=== PATIENT | female | born 1965 | race Hispanic/Latino ===

== ENCOUNTER 2018-02-21 13:11 | Inpatient (IN) | payer BC ==
[2018-02-21] MEDS ORDERED: Albuterol-Ipratrop 3 mg / 0.5 (3 ml) UD IH STA (13:49)
[2018-02-21] MEDS ORDERED: Sodium Chloride 0.9% 1,000 ML IV STA (13:49)
[2018-02-21] MEDS ORDERED: Albuterol 0.083% Inhal Sol (2.5 mg/3 mL) UD INH STA (13:49)
--- NOTE | 2018-02-21 13:55 | ED PDOC ---
Arrival/HPI - General Chief Complaint: Shortness Of Breath Time Seen by Provider: 02/21/18 13:47 Historian: Patient - History of Present Illness Narrative History of Present Illness (Text): 02/21/18 14:05 Patient is a 53 year old female who presents to the Emergency department complaining of sore throat, which has worsened to dyspnea over the past 8 days. Patient reports that 8 days ago she started experiencing sore throat and 4 days later her PMD prescribed Levaquin. Her symptoms continued to worsen and is now experiencing dyspnea. Patient states that she has an inhaler, which she has been taking for the past week. Patient admits to being a current smoker and smokes 4-5 cigarettes per day. Patient denies chills, chest pain, cough, abdominal pain, nausea, vomiting, diarrhea, back pain, neck pain, headache, dizziness, or any other complaint. Time/Duration: 1 week Symptom Onset: Gradual Symptom Course: Worsening Context: Home Past Medical History - Provider Review Nursing Documentation Reviewed: Yes - Infectious Disease Hx of Infectious Diseases: None - Cardiac Hx Cardiac Disorders: No - Pulmonary Hx Respiratory Disorders: Yes Hx Chronic Obstructive Pulmonary Disease (COPD): Yes Hx Pneumonia: Yes (06-06-15) - Neurological Hx Neurological Disorder: No - HEENT Hx HEENT Disorder: No - Renal Hx Renal Disorder: No - Endocrine/Metabolic Hx Endocrine Disorders: Yes Hx Hypothyroidism: Yes - Hematological/Oncological Hx Blood Disorders: No - Integumentary Hx Dermatological Disorder: No - Musculoskeletal/Rheumatological Hx Musculoskeletal Disorders: Yes Hx Arthritis: Yes (l leg surgery) - Gastrointestinal Hx Gastrointestinal Disorders: No - Genitourinary/Gynecological Hx Genitourinary Disorders: (C/S X 1,OOPHORECTOMY) - Psychiatric Hx Psychophysiologic Disorder: Yes Hx Anxiety: Yes Hx Substance Use: No - Surgical History Hx Abdominal Aortic Aneurysm Repair: Yes (disease.) Hx Musculoskeletal Surgery: Yes (knee) Other/Comment: oophorectomy - Anesthesia Hx Anesthesia: Yes Hx Anesthesia Reactions: No Family/Social History - Physician Review Nursing Documentation Reviewed: Yes Family/Social History: No Known Family HX Smoking Status: Light Smoker < 10 Cigarettes Daily Hx Alcohol Use: Yes (WINE SOCIALLY) Frequency of alcohol use: Socially Hx Substance Use: No Allergies/Home Meds Allergies/Adverse Reactions: Allergies No Known Allergies Allergy (Verified 06/06/15 20:58) Home Medications: Home Meds Medication Instructions Recorded Confirmed Levothyroxine [Synthroid] 125 mcg PO DAILY 02/21/18 02/21/18 Review of Systems - Physician Review All systems were reviewed & negative as marked: Yes - Review of Systems ENT: Sore Throat Respiratory: SOB Cardiovascular: absent: Chest Pain Gastrointestinal: absent: Abdominal Pain, Diarrhea, Nausea, Vomiting Musculoskeletal: absent: Back Pain, Neck Pain Neurological: absent: Headache, Dizziness Physical Exam Vital Signs Reviewed: Yes Vital Signs Temp Pulse Resp BP Pulse Ox 02/21/18 18:09 79 125/80 16 L 02/21/18 16:12 84 18 127/77 92 L 02/21/18 15:22 86 18 127/86 100 02/21/18 13:20 98.4 F 88 20 130/88 92 L 02/21/18 13:15 18 Temperature: Afebrile Blood Pressure: Normal Pulse: Regular Respiratory Rate: Normal Appearance: Positive for: Well-Appearing Mental Status: Positive for: Alert and Oriented X 3 - Systems Exam Head: Present: Atraumatic, Normocephalic Pupils: Present: PERRL Extroacular Muscles: Present: EOMI Conjunctiva: Present: Normal Mouth: Present: Moist Mucous Membranes Neck: Present: Normal Range of Motion Respiratory/Chest: Present: Good Air Exchange, Wheezes (Musical wheezing throught lungs), Rhonchi (Musical Rhonci throughout lungs). No: Respiratory Distress, Accessory Muscle Use Cardiovascular: Present: Regular Rate and Rhythm, Normal S1, S2. No: Murmurs Abdomen: No: Tenderness, Distention, Peritoneal Signs Back: Present: Normal Inspection Upper Extremity: Present: Normal Inspection. No: Cyanosis, Edema Lower Extremity: Present: Normal Inspection. No: Edema Neurological: Present: GCS=15, CN II-XII Intact, Speech Normal Skin: Present: Warm, Dry, Normal Color. No: Rashes Psychiatric: Present: Alert, Oriented x 3, Normal Insight, Normal Concentration Medical Decision Making ED Course and Treatment: 02/21/18 13:54 Impression: Patient is a 53 year old female who is experiencing worsening sore throat and dyspnea. Differential Diagnosis included but are not limited to: Pulmonary Embolism vs. Bronchitis vs. Pneumonia vs. COPD Plan: --EKG --Chest X-ray --Cardiac enzymes --D-Dimer --labs --Albuterol --Duoneb --Solu-Medrol --Urinalysis --IV fluids -- Reassess and disposition Prior Visits: Notes and results from previous visits were reviewed. Progress Notes: EKG shows NSR at 85 BPM with normal axis and intervals. Interpreted by me. Chest X-ray shows no acute processes. Interpreted by me. 02/21/18 14:27 D-Dimer was positive will order CTA to evaluate patient for pulmonary embolism. 02/21/18 15:18 Patient just told the nurse that she experienced tachycardia as an adverse reaction to a contrast used during a past stress test. As a precaution Pepcid and Benadryl was administered. 02/21/18 15:50 Reevaluation: On reevaluation the patient feels better since starting nebulizer treatment. Pending chemistry and CTA. 02/21/18 18:[address] with contrast(pulmonary angiogram): Creator : Fracisco Silva [employer] Machine Operator : Ayaan Chaves MD IMPRESSION: No definitive evidence of large central pulmonary embolus. Patchy ground-glass opacities seen in the upper lobes bilaterally, including the middle lobe and lingular regions and left lung base. Minor changes seen right lung base. Findings may represent may represent developing multifocal infiltrates. 02/21/18 19:38 Discussed case with who agreed to the patient being admitted under his services. requested consult with and - Lab Interpretations Lab Results: 02/21/18 13:53 02/21/18 16:30 Lab Results 02/21/18 16:30: Sodium 143, Potassium 3.7, Chloride 106, Carbon Dioxide 24, Anion Gap 16, BUN 10, Creatinine 0.6 L, Est GFR ( Amer) > 60, Est GFR ( Non-Af Amer) > 60, Random Glucose 189 H, Calcium 8.9, Total Bilirubin 0.6, AST 28, ALT 24, Alkaline Phosphatase 116, Lactate Dehydrogenase 690, Total Creatine Kinase 58, Troponin I < 0.01, Total Protein 7.3, Albumin 4.2, Globulin 3.0, Albumin/Globulin Ratio 1.4 02/21/18 14:06: Urine Color Yellow, Urine Appearance Clear, Urine pH 6.5, Ur Specific [place] 1.025, Urine Protein Trace H, Urine Glucose (UA) Negative, Urine Ketones Negative, Urine Blood Negative, Urine Nitrate Negative, Urine Bilirubin Negative, Urine Urobilinogen 0.2, Ur Leukocyte Esterase Negative, Urine RBC 0 - 2, Urine WBC 0 - 2, Ur Epithelial Cells 4 - 5, Urine Bacteria Many , Urine Other Uyeast 02/21/18 13:53: PT 11.8, INR 1.03, D-Dimer, Quantitative 529 H 02/21/18 13:53: WBC 9.9 D, RBC 4.29, Hgb 14.9, Hct 43.2, MCV 100.7, MCH 34.7, MCHC 34.5, RDW 14.2, Plt Count 255, MPV 10.2, Gran % 79.8 H, Lymph % (Auto) 14.6 L, [place] % (Auto) 5.2, Eos % (Auto) 0.3 L, Baso % (Auto) 0.1, Gran # 7.93 H , Lymph # (Auto) 1.5, [place] # (Auto) 0.5, Eos # (Auto) 0.0, Baso # (Auto) 0.01 I have reviewed the lab results: Yes - RAD Interpretation Radiology Orders: 02/21/18 13:49 CHEST PORTABLE [RAD] Stat 02/21/18 14:35 ANGIO CHEST PE PROTOCOL [CT] Stat Tobacco Sample Puller: ED Physician, Radiologist - EKG Interpretation Interpreted by ED Physician: Yes Type: 12 lead EKG - Medication Orders Current Medication Orders: Discontinued Medications Albuterol Sulfate (Albuterol 0.083% Inhal Janine (2.5 Mg/3 Ml) Ud) 5 mg INH STAT STA Stop: 02/21/18 13:50 Last Admin: 02/21/18 14:10 Dose: 5 mg Albuterol/Ipratropium (Duoneb 3 Mg/0.5 Mg (3 Ml) Ud) 3 ml IH STAT STA Stop: 02/21/18 13:50 Last Admin: 02/21/18 14:09 Dose: 3 ml Diphenhydramine HCl (Benadryl) 50 mg IVP STAT STA Stop: 02/21/18 15:16 Last Admin: 02/21/18 15:21 Dose: 50 mg IVP Administration Document 02/21/18 15:21 SF (Rec: 02/21/18 15:21 [email or web address] Charges for Administration # of IVP Administrations 1 Famotidine (Pepcid) 40 mg IVP STAT STA Stop: 02/21/18 15:16 Last Admin: 02/21/18 15:21 Dose: 40 mg IVP Administration Document 02/21/18 15:21 SF (Rec: 02/21/18 15:21 [email or web address] Charges for Administration # of IVP Administrations 1 Sodium Chloride (Sodium Chloride 0.9%) 1,000 mls @ 999 mls/hr IV .Q1H1M STA Stop: 02/21/18 14:49 Last Admin: 02/21/18 13:55 Dose: 999 mls/hr eMAR Start Stop Document 02/21/18 13:55 SF (Rec: 02/21/18 14:15 [email or web address]) Intravenous Solution Start Date 02/21/18 Start Time 13:55 End Date 02/21/18 End time 14:56 Total Infusion Time 61 Magnesium 2 gm/50 ml NS (Magnesium Sulfate 2 Gm/50 Ml Ns) 2 gm in 50 mls @ 50 mls/hr IVPB ONCE ONE Stop: 02/21/18 15:03 Last Admin: 02/21/18 14:36 Dose: 50 mls/hr eMAR Start Stop Document 02/21/18 14:36 SF (Rec: 02/21/18 14:36 [email or web address] Intravenous Solution Start Date 02/21/18 Start Time 14:36 End Date 02/21/18 End time 15:36 Total Infusion Time 60 Vancomycin HCl (Vancomycin 1gm) 1 gm in 250 mls @ 167 mls/hr IVPB STAT STA PRN Reason: Protocol Stop: 02/21/18 20:27 Last Admin: 02/21/18 20:59 Dose: 167 mls/hr eMAR Start Stop Document 02/21/18 20:59 SF (Rec: 02/21/18 21:00 [email or web address]) Intravenous Solution Start Date 02/21/18 Start Time 21:00 End Date 02/21/18 End time 22:30 Total Infusion Time 90 Piperacillin Sod/Tazobactam Sod (Zosyn 3.375 In Ns 100ml) 100 mls @ 200 mls/hr IVPB STAT STA PRN Reason: Protocol Stop: 02/21/18 19:27 Last Admin: 02/21/18 19:42 Dose: 200 mls/hr eMAR Start Stop Document 02/21/18 19:42 SF (Rec: 02/21/18 19:43 [email or web address] Intravenous Solution Start Date 02/21/18 Start Time 19:42 End Date 02/21/18 End time 20:15 Total Infusion Time 33 Lorazepam (Ativan) 1 mg IVP ONCE ONE PRN Reason: Protocol Stop: 02/21/18 14:05 Last Admin: 02/21/18 14:36 Dose: 1 mg IVP Administration Document 02/21/18 14:36 SF (Rec: 02/21/18 14:36 [email or web address] Charges for Administration # of IVP Administrations 1 Lorazepam (Ativan) 2 mg IVP ONCE ONE PRN Reason: Protocol Stop: 02/21/18 15:16 Last Admin: 02/21/18 15:21 Dose: 2 mg IVP Administration Document 02/21/18 15:21 SF (Rec: 02/21/18 15:21 SF [email or web address] Charges for Administration # of IVP Administrations 1 Methylprednisolone (Solu-Medrol) 125 mg IVP STAT STA Stop: 02/21/18 13:53 Last Admin: 02/21/18 14:10 Dose: 125 mg IVP Administration Document 02/21/18 14:10 SF (Rec: 02/21/18 14:10 SF [email or web address] Charges for Administration # of IVP Administrations 1 - Scribe Statement The provider has reviewed the documentation as recorded by the Elizabethibrosa Joyner Provider Scribe Attestation: All medical record entries made by the Scribe were at my direction and personally dictated by me. I have reviewed the chart and agree that the record accurately reflects my personal performance of the history, physical exam, medical decision making, and the department course for this patient. I have also personally directed, reviewed, and agree with the discharge instructions and disposition. Disposition/Present on Arrival - Present on Arrival Any Indicators Present on Arrival: No History of DVT/PE: No History of Uncontrolled Diabetes: No Urinary Catheter: No History of Decub. Ulcer: No History Surgical Site Infection Following: None - Disposition Have Diagnosis and Disposition been Completed?: Yes Diagnosis: Pneumonia Disposition: HOSPITALIZED Disposition Time: 19:10 Patient Plan: Admission Patient Problems: Current Active Problems Problem Status Onset Pneumonia Acute Condition: FAIR
[2018-02-21 14:02] LABS: BASO # 0.01 K/mm3 (0.0-2.0); BASO % 0.1 % (0.0-3.0); EOS % 0.3 % (1.5-5.0); GRAN # 7.93 (1.4-6.5); GRAN % 79.8 % (50.0-68.0); HEMOGLOBIN 14.9 g/dL (12.0-16.0); LYMPH # 1.5 (1.2-3.4); LYMPH % 14.6 % (22.0-35.0); MEAN CELL VOLUME 100.7 fl (80.0-105.0); MEAN CORPUSCULAR HEMOGLOBIN 34.7 pg (25.0-35.0); MEAN CORPUSCULAR HGB CONC 34.5 g/dl (31.0-37.0); MEAN PLATELET VOLUME 10.2 fl (7.0-11.0); MONO # 0.5 (0.1-0.6); MONO % 5.2 % (1.0-6.0); RBC 4.29 10^6/uL (3.5-6.1); RED CELL DISTRIBUTION WIDTH 14.2 % (11.5-14.5); WHITE BLOOD COUNT 9.9 10^3/ul (4.5-11.0)
[2018-02-21] MEDS ORDERED: Magnesium 2 gm/50 ml NS 2 GM/50 ML BAG IVPB ONE (14:04)
[2018-02-21 14:11] LABS: PH,URINE 6.5 (4.7-8.0); URINE BILIRUBIN NEGATIVE (NEGATIVE); URINE BLOOD NEGATIVE (NEGATIVE); URINE GLUCOSE (UA) NEGATIVE (NEGATIVE); URINE LEUKOCYTE ESTERASE NEGATIVE Leu/uL (NEGATIVE); URINE PROTEIN TRACE mg/dL (<30 mg/dL); URINE UROBILINOGEN 0.2 E.U./dL (<1 E.U./dL)
--- NOTE | 2018-02-21 14:11 | RAD ---
HISTORY: Cough, Cold and Congestion, despite steroids COMPARISON: 06/29/2015 FINDINGS: LUNGS: There is peribronchial thickening. No evidence of pneumonia PLEURA: No significant pleural effusion identified, no pneumothorax apparent. CARDIOVASCULAR: Normal. OSSEOUS STRUCTURES: No significant abnormalities. VISUALIZED UPPER ABDOMEN: Normal. OTHER FINDINGS: None. IMPRESSION: Peribronchial thickening with no evidence of pneumonia
[2018-02-21 14:16] LABS: INR 1.03 (0.93-1.08); PROTHROMBIN TIME 11.8 SECONDS (9.4-12.5)
[2018-02-21 14:19] LABS: URINE APPEARANCE CLEAR (CLEAR); URINE COLOR YELLOW (YELLOW)
[2018-02-21 14:28] LABS: URINE BACTERIA MANY (NEG); URINE RBC 0 - 2 /hpf (0-2); URINE WBC 0 - 2 /hpf (0-6)
[2018-02-21] MEDS ORDERED: DiphenhydrAMINE 50 mg/ml Inj IVP STA (15:15)
[2018-02-21 17:06] LABS: ALB/GLOB RATIO 1.4 (1.1-1.8); ALBUMIN 4.2 g/dL (3.0-4.8); ALT/SGPT 24 U/L (7-56); AST/SGOT 28 U/L (14-36); BLOOD UREA NITROGEN 10 mg/dL (7-21); CALCIUM 8.9 mg/dL (8.4-10.5); GFR AFRICAN-AMERICAN > 60; GFR NON-AFRICAN AMERICAN > 60
[2018-02-21 17:12] LABS: TROPONIN I < 0.01 ng/mL
[2018-02-21] MEDS ORDERED: Iohexol 300 100 ML IJ ONE (17:13)
--- NOTE | 2018-02-21 18:14 | CT ---
PROCEDURE: CT Chest with contrast (Pulmonary Angiogram) HISTORY: Elevated D-Dimer, Possible PE COMPARISON: Comparison made with CT scan chest dated 08/10/2015. TECHNIQUE: Axial computed tomography images were obtained of the chest in the pulmonary arterial phase of enhancement. Coronal and sagittal reformatted images were created and reviewed. Intravenous contrast dose: 100 cc Omnipaque 350 Radiation dose: Total exam DLP = 337.92 mGy-cm. This CT exam was performed using one or more of the following dose reduction techniques: Automated exposure control, adjustment of the mA and/or kV according to patient size, and/or use of iterative reconstruction technique. FINDINGS: PULMONARY ARTERIES: The visualized portions of the pulmonary trunk, right and left main, the lobar, segmental and proximal subsegmental branches of the pulmonary arteries appear relatively well opacified with no definitive large central filling defects seen to suggest pulmonary embolus. Pulmonary trunk measures approximately 2.7 cm. AORTA: No acute findings. No thoracic aortic aneurysm. Ascending thoracic aorta measures approximately 3.2 cm and descending thoracic aorta measures approximately 2.5 cm. No evidence of aortic dissection LUNGS: There are patchy ground-glass opacities seen in the upper lobes bilaterally, including the middle lobe and lingular regions and left lung base. Minor changes seen right lung base. Findings may represent may represent developing multifocal infiltrates. PLEURAL SPACES: Unremarkable. No effusion or pneumothorax. HEART: Heart size is mildly enlarged. No significant pericardial effusion. LYMPH NODES: Multiple of mediastinal lymph nodes are present the largest in the right precarinal mid region measuring nearly 14 mm. Small bilateral hilar lymph nodes are present as well. Central airways midline and patent. No large central endoluminal lesions. BONES, CHEST WALL: Mild multilevel degenerative spondylosis of the thoracic spine. No acute compression fractures no retropulsed fragments. OTHER FINDINGS: Unremarkable. IMPRESSION: No definitive evidence of large central pulmonary embolus. . Patchy ground-glass opacities seen in the upper lobes bilaterally, including the middle lobe and lingular regions and left lung base. Minor changes seen right lung base. Findings may represent may represent developing multifocal infiltrates. See above discussion for additional details and findings.
[2018-02-21] MEDS ORDERED: Vancomycin 1gm in NS 250ml 1 GM/250 ML BAG IVPB STA (18:58)
[2018-02-21] MEDS ORDERED: Piperacillin/Tazobact 3.375 gm 100 ML IVPB STA (18:58)
[2018-02-22] MEDS: Albuterol-Ipratrop 3 mg / 0.5 (3 ml) UD IH SCH ×3 (00:24→07:49)
[2018-02-22 00:28] VITALS: BMI 29.1
[2018-02-22 07:08] LABS: HEMOGLOBIN 13.7 g/dL (12.0-16.0); MEAN CELL VOLUME 100.5 fl (80.0-105.0); MEAN CORPUSCULAR HEMOGLOBIN 35.3 pg (25.0-35.0); MEAN CORPUSCULAR HGB CONC 35.1 g/dl (31.0-37.0); MEAN PLATELET VOLUME 10.3 fl (7.0-11.0); RBC 3.88 10^6/uL (3.5-6.1); RED CELL DISTRIBUTION WIDTH 14.1 % (11.5-14.5); WHITE BLOOD COUNT 11.5 10^3/ul (4.5-11.0)
[2018-02-22 07:51] LABS: T4 5.7 ug/dL (5.5-11.0)
[2018-02-22 08:04] LABS: T3 0.48 ng/mL (0.97-1.69)
[2018-02-22 08:19] LABS: ALB/GLOB RATIO 1.2 (1.1-1.8); ALBUMIN 3.7 g/dL (3.0-4.8); ALT/SGPT 27 U/L (7-56); AST/SGOT 23 U/L (14-36); BLOOD UREA NITROGEN 9 mg/dL (7-21); CALCIUM 8.9 mg/dL (8.4-10.5); GFR AFRICAN-AMERICAN > 60; GFR NON-AFRICAN AMERICAN > 60
--- NOTE | 2018-02-22 09:44 | CARD ---
APPROVED REPORT EKG Measurement Heart [id number] DC [id number] [id number] <Conclusion> Normal sinus rhythm Nonspecific ST abnormality No change
[2018-02-22] MEDS ORDERED: Azithromycin 500MG/NS 250ml 500 MG/250 ML BAG IVPB ONE (10:30)
[2018-02-22] MEDS: Cefepime 1gm in NS 100ml 1 GM/100 ML BAG IVPB SCH ×2 (13:02→21:42)
[2018-02-22] MEDS: Levalbuterol 0.63 MG/3 ML Inhal Soln UD IH SCH ×2 (13:33→22:00)
[2018-02-22] MEDS: Vancomycin 1gm in NS 250ml 1 GM/250 ML BAG IVPB SCH ×2 (14:05→22:56)
--- NOTE | 2018-02-22 14:34 | CP.PCM.CON ---
History of Present Illness - History of Present Illness History of Present Illness: 53 year old female with PMH of COPD, history of pneumonia, hypothyroidism, anxiety, S/P oophorectomy, S/P knee surgery came in to [facility] [place] because of continued cough and SOB which started a week ago. She was using her inhaler which was not helping. She saw her PMD and she was given Levaquin which she took for 4 days with minimal relief. She denies sore throat, no rhinorrhea, no chest pain, no headache or dizziness, no fever or chills, no nausea or vomiting, no abdominal pain, no diarrhea, no dysuria. CT chest showed multifocal infiltrates. Infectious diseases consult is requested to further evaluate and manage. Review of Systems - Review of Systems All systems: reviewed and no additional remarkable complaints except (as per HPI ) Past Patient History - Infectious Disease Hx of Infectious Diseases: None - Past Medical History & Family History Past Medical History?: No - Past Social History Smoking Status: Light Smoker < 10 Cigarettes Daily - CARDIAC Hx Hypertension: Yes - PULMONARY Hx Asthma: Yes Hx Chronic Obstructive Pulmonary Disease (COPD): Yes Hx Pneumonia: Yes - NEUROLOGICAL Hx Neurological Disorder: No - HEENT Hx Cataracts: Yes (B/L eyes) - RENAL Hx Chronic Kidney Disease: No - ENDOCRINE/METABOLIC Hx Hypothyroidism: Yes - HEMATOLOGICAL/ONCOLOGICAL Hx Blood Disorders: No - INTEGUMENTARY Hx Dermatological Problems: No - MUSCULOSKELETAL/RHEUMATOLOGICAL Hx Falls: No Hx Unsteady Gait: Yes (Knee replacement) - GASTROINTESTINAL Hx Gastrointestinal Disorders: No - GENITOURINARY/GYNECOLOGICAL Other/Comment: L ovary removed - PSYCHIATRIC Hx Anxiety: Yes Hx Depression: Yes Hx Substance Use: No - SURGICAL HISTORY Hx Hysterectomy: Yes (Partial) Hx Joint Replacement: Yes (Knee Replacement) - ANESTHESIA Hx Anesthesia: Yes Hx Anesthesia Reactions: No Meds Allergies/Adverse Reactions: Allergies Allergy/AdvReac Type Severity Reaction Status Date / Time No Known Allergies Allergy Verified 06/06/15 20:58 - Medications Medications: Current Medications Alprazolam (Xanax) 0.5 mg PO TID PRN; Protocol PRN Reason: Anxiety Last Admin: 02/22/18 09:54 Dose: 0.5 mg Azithromycin (Zithromax 500mg In Ns) 500 mg in 250 mls @ 167 mls/hr IVPB DAILY DESTINI Azithromycin (Zithromax 500mg In Ns) 500 mg in 250 mls @ 167 mls/hr IVPB .EXTRA DOSE ONE Stop: 02/22/18 11:59 Levalbuterol HCl (Xopenex) 0.63 mg IH TIDRESP DESTINI Lorazepam (Ativan) 0.5 mg IVP Q6H PRN; Protocol PRN Reason: Agitation Last Admin: 02/22/18 05:00 Dose: 0.5 mg Methylprednisolone (Solu-Medrol) 80 mg IVP Q8 DESTINI Last Admin: 02/22/18 06:46 Dose: 80 mg Physical Exam - Constitutional Appears: Non-toxic - Head Exam Head Exam: NORMAL INSPECTION - ENT Exam ENT Exam: Mucous Membranes Moist - Neck Exam Neck exam: Negative for: Lymphadenopathy, Meningismus - Respiratory Exam Respiratory Exam: Decreased Breath Sounds - Cardiovascular Exam Cardiovascular Exam: +S1, +S2 - GI/Abdominal Exam GI & Abdominal Exam: Soft. absent: Tenderness Results - Vital Signs Recent Vital Signs: Last Vital Signs Temp 98.4 F 02/22/18 06:00 Pulse 80 02/22/18 06:00 Resp 21 02/22/18 06:00 BP 120/76 02/22/18 06:00 Pulse Ox 93 L 02/22/18 06:00 - Labs Result Diagrams: 02/22/18 06:30 02/22/18 06:30 Labs: Laboratory Results - last 24 hr 02/22/18 02/22/18 02/22/18 06:30 06:30 06:30 WBC 11.5 H RBC 3.88 Hgb 13.7 Hct 39.0 MCV 100.5 MCH 35.3 H MCHC 35.1 RDW 14.1 Plt Count 254 MPV 10.3 Sodium 140 Potassium 3.6 Chloride 105 Carbon Dioxide 24 Anion Gap 15 BUN 9 Creatinine 0.6 L Est GFR ( Amer) > 60 Est GFR (Non-Af Amer) > 60 Random Glucose 157 H Calcium 8.9 Total Bilirubin 0.3 AST 23 ALT 27 Alkaline Phosphatase 103 Total Protein 6.9 Albumin 3.7 Globulin 3.1 Albumin/Globulin Ratio 1.2 Thyroxine (T4) 5.7 Total T3 0.48 L TSH 3rd Generation 0.82 Assessment & Plan - Assessment and Plan (Free Text) Plan: Assessment Sepsis due to multifocal HCAP (since she was exposed to antibiotics in the past week) COPD history of pneumonia hypothyroidism anxiety S/P oophorectomy S/P knee surgery Plan Started Vancomycin, Cefepime and Zithromax pending blood cx, urine Legionella Ag , sputum cx, PCT will monitor clinical response
[2018-02-22] MEDS: Naproxen 550 mg Tab PO PRN (16:17)
[2018-02-22] MEDS: guaiFENesin-Codeine 100-10mg/5ml Syrup (5 ml) UD PO PRN (16:17)
[2018-02-22] MEDS ORDERED: Levothyroxine 125 MCG TAB PO STA (16:23)
--- NOTE | 2018-02-22 19:36 | PN ---
DATE: 02/22/2018 LOCATION: The patient is in room 270, bed 2. SUBJECTIVE: She states she feels better this morning. There have been no acute events overnight. PHYSICAL EXAMINATION: VITAL SIGNS: Temperature of 98.9, pulse rate of 81, blood pressure 129/89, respiratory rate of 20 with a 93% O2 saturation on a nasal cannula. HEENT: Negative. NECK: Supple with full range of motion. No bruits or adenopathy appreciated. LUNGS: Minimal scattered wheeze. HEART: Regular rate and rhythm. No murmurs. ABDOMEN: Benign. NEUROLOGIC: There are no focal deficits. LABORATORY DATA: WBC of 11.5. Chemistries within normal limits with the exception of a random glucose of 157. CT of the chest, no definitive evidence of embolus, no pneumonias identified. IMPRESSION: At this time, acute exacerbation of chronic obstructive pulmonary disease. PLAN: Continue current regimen. Jovanny Thayer MD
[2018-02-23] MEDS: Levothyroxine 125 MCG TAB PO SCH (05:33)
[2018-02-23] MEDS: guaiFENesin-Codeine 100-10mg/5ml Syrup (5 ml) UD PO PRN ×2 (05:33→17:03)
[2018-02-23] MEDS: Cefepime 1gm in NS 100ml 1 GM/100 ML BAG IVPB SCH ×3 (05:33→22:24)
[2018-02-23 07:49] LABS: HEMOGLOBIN 13.2 g/dL (12.0-16.0); MEAN CELL VOLUME 102.1 fl (80.0-105.0); MEAN CORPUSCULAR HEMOGLOBIN 34.2 pg (25.0-35.0); MEAN CORPUSCULAR HGB CONC 33.5 g/dl (31.0-37.0); MEAN PLATELET VOLUME 10.5 fl (7.0-11.0); RBC 3.86 10^6/uL (3.5-6.1); RED CELL DISTRIBUTION WIDTH 14.2 % (11.5-14.5); WHITE BLOOD COUNT 15.5 10^3/ul (4.5-11.0)
[2018-02-23] MEDS: Levalbuterol 0.63 MG/3 ML Inhal Soln UD IH SCH ×3 (07:54→19:02)
[2018-02-23 08:09] LABS: ALB/GLOB RATIO 1.2 (1.1-1.8); ALBUMIN 3.6 g/dL (3.0-4.8); ALT/SGPT 32 U/L (7-56); AST/SGOT 25 U/L (14-36); BLOOD UREA NITROGEN 11 mg/dL (7-21); GFR AFRICAN-AMERICAN > 60; GFR NON-AFRICAN AMERICAN > 60
--- NOTE | 2018-02-23 09:28 | PN ---
DATE: 02/23/2018 PULMONARY PROGRESS NOTE SUBJECTIVE: The patient was seen and examined at the bedside. She still complains of tightness in the chest and shortness of breath. She is coughing productively. PHYSICAL EXAMINATION: VITAL SIGNS: Her temperature is 97.8, pulse 63, respirations 20, pulse oximetry is 93 on nasal cannula, blood pressure 120/60. HEENT: Examination of head, ears, nose and throat is within normal limits. NECK: Supple with no jugular vein distentions. CARDIOVASCULAR: S1, S2. No S3. Regular. LUNGS: Few crackles bilaterally. Expiratory wheezes and rhonchi bilaterally. GASTROINTESTINAL: Soft, nontender. No organomegaly. EXTREMITIES: No pedal edema. No cyanosis. SKIN: No acute skin rash. NEUROLOGIC: No focal deficits. ASSESSMENT: 1. Multilobar pneumonia. 2. Exacerbation of chronic obstructive pulmonary disease. 3. Bronchospasm. PLAN: I have reviewed CT scan of the chest yesterday and determined there are infiltrates in right upper lobe, right lower lobe as well as lingula, so this reveals a pattern of multifocal pneumonia. Today's blood work was reviewed by me. WBCs are 15.5, a hemoglobin of 13.2. I added Zithromax for atypical coverage since radiologically it is more likely to be atypical of viral pneumonia than bacterial pneumonia. With this addition, the patient's condition is improving. We will continue with triple antibiotic therapy, steroids and inhalation treatments. Bryan Meyers MD
[2018-02-23] MEDS: Azithromycin 500MG/NS 250ml 500 MG/250 ML BAG IVPB SCH (09:32)
[2018-02-23] MEDS: Naproxen 550 mg Tab PO PRN ×2 (09:51→17:03)
[2018-02-23] MEDS: Vancomycin 1gm in NS 250ml 1 GM/250 ML BAG IVPB SCH ×2 (11:51→22:25)
--- NOTE | 2018-02-23 12:54 | CP.PCM.PN ---
Subjective - Date & Time of Evaluation Date of Evaluation: 02/23/18 Time of Evaluation: 10:10 - Subjective Subjective: Still with cough and some chest tightness but feeling a little better. Objective - Vital Signs/Intake and Output Vital Signs (last 24 hours): Temp Pulse Resp BP Pulse Ox 97.8 F 69 20 126/83 93 L 02/23/18 06:00 02/23/18 06:00 02/23/18 06:00 02/23/18 06:00 02/23/18 06:00 Intake and Output: 02/23/18 02/23/18 06:59 18:59 Intake Total 1410 Balance 1410 - Medications Medications: Current Medications Alprazolam (Xanax) 0.5 mg PO TID PRN; Protocol PRN Reason: Anxiety Last Admin: 02/22/18 22:57 Dose: 0.5 mg Guaifenesin/Codeine Phosphate (Robitussin W/Codeine) 5 ml PO Q4H PRN PRN Reason: Cough and congestion Last Admin: 02/23/18 05:33 Dose: 5 ml Azithromycin (Zithromax 500mg In Ns) 500 mg in 250 mls @ 167 mls/hr IVPB DAILY DESTINI Cefepime HCl (Maxipime 1gm) 1 gm in 100 mls @ 100 mls/hr IVPB Q8 DESTINI PRN Reason: Protocol Last Admin: 02/23/18 05:33 Dose: 100 mls/hr Vancomycin HCl (Vancomycin 1gm) 1 gm in 250 mls @ 167 mls/hr IVPB Q12H DESTINI PRN Reason: Protocol Last Admin: 02/22/18 22:56 Dose: 167 mls/hr Levalbuterol HCl (Xopenex) 0.63 mg IH TIDRESP [facility] Last Admin: 02/23/18 07:54 Dose: 0.63 mg Levothyroxine Sodium (Synthroid) 125 mcg PO 0600 DESTINI Last Admin: 02/23/18 05:33 Dose: 125 mcg Lorazepam (Ativan) 0.5 mg IVP Q6H PRN; Protocol PRN Reason: Agitation Last Admin: 02/22/18 05:00 Dose: 0.5 mg Methylprednisolone (Solu-Medrol) 80 mg IVP Q8 DESTINI Last Admin: 02/23/18 05:33 Dose: 80 mg Naproxen (Anaprox Ds) 550 mg PO BID PRN PRN Reason: Pain, moderate (4-7) Last Admin: 02/22/18 16:17 Dose: 550 mg - Labs Labs: 02/23/18 06:30 02/23/18 06:30 PT 11.8 SECONDS (9.4-12.5) 02/21/18 13:53 INR 1.03 (0.93-1.08) 02/21/18 13:53 - Constitutional Appears: Chronically Ill - Head Exam Head Exam: NORMAL INSPECTION - Respiratory Exam Respiratory Exam: Decreased Breath Sounds - Cardiovascular Exam Cardiovascular Exam: +S1, +S2 - GI/Abdominal Exam GI & Abdominal Exam: Soft. absent: Tenderness Assessment and Plan - Assessment and Plan (Free Text) Plan: Assessment Sepsis due to multifocal HCAP (since she was exposed to antibiotics in the past week) COPD history of pneumonia hypothyroidism anxiety S/P oophorectomy S/P knee surgery Plan continue Vancomycin, Cefepime and Zithromax day 2 pending blood cx, urine Legionella Ag, sputum cx; PCT is low will continue to monitor clinical response
[2018-02-24] MEDS: Cefepime 1gm in NS 100ml 1 GM/100 ML BAG IVPB SCH ×3 (05:22→22:03)
[2018-02-24] MEDS: Levothyroxine 125 MCG TAB PO SCH (05:23)
[2018-02-24] MEDS: Naproxen 550 mg Tab PO PRN ×2 (05:37→15:49)
[2018-02-24] MEDS ORDERED: Albuterol-Ipratrop 3 mg / 0.5 (3 ml) UD IH PRN (06:54)
[2018-02-24] MEDS: MethylPREDNISolone 40 mg Vial IVP SCH ×2 (07:07→14:25)
--- NOTE | 2018-02-24 07:27 | PN ---
DATE: 02/24/2018 PULMONARY NOTE SUBJECTIVE: The patient appears comfortable this morning. She is not short of breath at rest. OBJECTIVE: VITAL SIGNS: Temperature is 97.7, pulse 53, respirations 19, blood pressure 140/66. Oxygen saturation on nasal cannula is 94-99%. HEENT: Normocephalic, atraumatic. No JVD. CARDIOVASCULAR: Positive S1, S2. No S3 gallop. LUNGS: Decreased breath sounds at the bases. Minimal bilateral rhonchi and wheezing are present. EXTREMITIES: No clubbing, cyanosis or edema. Calves are nontender to palpation. GI: Abdomen is soft, nontender and nondistended. Bowel sounds are positive. SKIN: No acute rash. NEUROLOGIC: Exam limited at the present time. IMPRESSION: 1. Multilobar pneumonia. 2. Acute bronchitis. 3. Acute bronchospasm. 4. Chronic obstructive pulmonary disease. PLAN: The patient appears comfortable this morning. She is not short of breath at rest. She does state to feeling much better overall. On physical exam, there is only mild bronchospasm present. In addition, there is no significant alveolar-arterial gradient. I will decrease the intravenous steroids this morning. I will also change to DuoNeb treatments and add inhaled Pulmicort this morning. I would continue with the current antibiotic therapy - as per Infectious Disease. Input by Dr. Mercado is noted. The temperatures have now fully resolved. There is a leukocytosis - probably due to the steroids. Clinical status of the patient is certainly improved - compared to the initial presentation. I will discuss the above with Dr. Thayer later this morning. Yosef Ryan MD [facility]
--- NOTE | 2018-02-24 07:55 | HP ---
HISTORY OF PRESENT ILLNESS: The patient is a 53-year-old female on room 270, bed 2. The patient presented to the office today complaining of increasing shortness of breath. She was seen 4 days ago in the office and placed on Levaquin, steroids as well as a cough medication and she has been complaining of worsening of dyspnea for the past 8 days. Through the time, she states that the symptoms of shortness of breath and chest tightness and wheezing continued to worsen. PAST MEDICAL HISTORY: Is remarkable for COPD and pneumonia of 06/06/2015. FAMILY HISTORY: Unremarkable. ALLERGIES: NO KNOWN ALLERGIES. SOCIAL HISTORY: This patient smokes approximately 10 cigarettes per day and drinks alcohol socially. PHYSICAL EXAMINATION: VITAL SIGNS: Temperature of 98.4, pulse rate of 86, blood pressure 127/86, respiration rate of 18, oxygen saturation of 92% on room air. HEENT: PERRLA. There is no icterus. Extraocular muscles are intact. NECK: Supple with a full range of motion. There are no bruits or adenopathy present. LUNGS: Shows scattered wheezes and rhonchi throughout both lung sweeney. HEART: Regular rate and rhythm. No murmurs, rubs, or gallops. ABDOMEN: Benign. EXTREMITIES: Show no deformities and no edema. NEUROLOGIC: There are no focal motor deficits. LABORATORY DATA: White blood count is 9.9 with 79% granulocytes. Chemistry is entirely within normal limits with the exception of a non-fasting glucose of 189. Chest x-ray shows peribronchial thickening with no evidence of pneumonia. IMPRESSION AND PLAN: At the time of admission is acute exacerbation of chronic obstructive pulmonary disease. The patient will be placed on bronchodilators, intravenous antibiotics, and respiratory treatments. Consults have been placed for Dr. Ryan as well as Dr. Miller. Jovanny Thayer MD
[2018-02-24 08:06] LABS: HEMOGLOBIN 13.1 g/dL (12.0-16.0); MEAN CELL VOLUME 102.4 fl (80.0-105.0); MEAN CORPUSCULAR HEMOGLOBIN 34.4 pg (25.0-35.0); MEAN CORPUSCULAR HGB CONC 33.6 g/dl (31.0-37.0); MEAN PLATELET VOLUME 10.2 fl (7.0-11.0); RBC 3.81 10^6/uL (3.5-6.1); RED CELL DISTRIBUTION WIDTH 14.3 % (11.5-14.5); WHITE BLOOD COUNT 15.2 10^3/ul (4.5-11.0)
--- NOTE | 2018-02-24 08:18 | CON ---
DATE: 02/22/2018 PULMONARY PROGRESS NOTE REQUESTING PHYSICIAN: Wojciech Thayer MD Rupal Mackey was admitted via emergency room with chief complaint of shortness of breath, wheezing and sore throat. HISTORY OF PRESENT ILLNESS: Patient started complaining of sore throat and cough approximately 1 week prior to her admission. She had fever, developed yellow productive sputum. She also noted wheezing and increased shortness of breath. Patient had a long history of smoking, smokes at least 1 pack per day. There is no history of bronchial asthma. I have personally reviewed her chest x-ray and CT scan. Chest x-ray initially reported only as increased bronchovascular marking; however, both chest x-ray and CT scan reveals multilobar pneumonia with mostly interstitial infiltrates, atypical pneumonia is suspected; however, patient should be covered for both bacterial and atypical pathogens. FAMILY HISTORY: Negative for inherited diseases. SOCIAL HISTORY: She is a lifelong smoker, smokes at least 1 pack per day. MEDICATIONS AT HOME: Reviewed per NOV. The only medication at home is levothyroxine. ALLERGIES: NO KNOWN ALLERGIES. REVIEW OF SYSTEMS: Conducted by reviewing all sources. PULMONARY: See history of present illness. ENDOCRINE: History of hypothyroidism. MUSCULOSKELETAL: History of arthritis and leg surgery. CARDIOVASCULAR: No recent chest pain or palpitations. GASTROINTESTINAL: No nausea, vomiting or diarrhea. The rest of systems were reviewed and found to be negative. HABITS: Currently she is a light smoker, 10 cigarettes a day. She drinks alcohol socially only, never used illicit drugs. PHYSICAL EXAMINATION: GENERAL: She is awake, alert in some respiratory difficulty. HEAD, EAR, NOSE AND THROAT: Within normal limits. NECK: Supple. There is no jugular vein distention. CARDIOVASCULAR: Symmetrical. S1, S2. No S3, regular. PULMONARY: There is bilateral course rhonchi and bilateral expiratory wheezes. GI: Soft, nontender. No organomegaly. EXTREMITIES: No pedal edema. No cyanosis. SKIN: Clear with no skin rashes. No cyanosis. NEUROLOGIC: No focal deficits. LABORATORY DATA: I reviewed additional data. Her D-dimer was elevated. Therefore, she got CTA. I described already the findings on the CT scan of chest on angiographic part. There was no evidence of pulmonary emboli. Her blood chemistries were within normal limits. WBC is normal at 9.9, hemoglobin of 14.9. ASSESSMENT: 1. Bilateral pneumonia, multifocal. 2. Chronic obstructive pulmonary disease. 3. Significant bronchospasm. 4. Hypoxia. 5. Hypothyroidism. PLAN: Patient is complaining of shaky feeling after inhalation treatment. I will replace her DuoNeb inhalations with levalbuterol low dose, which should help with tremors. She is also receiving Ativan for this tremulous feeling. She was started on Zosyn, on vancomycin per emergency room. She also received dose of Benadryl, Pepcid to protect GI tract and received steroids in pretty high dose. Her current antibiotics include vancomycin and Zosyn. This is not good coverage for atypicals and I will add doxycycline. The other alternative would be azithromycin. Patient's condition is guarded, but not critical. Bryan Meyers MD
[2018-02-24] MEDS: Budesonide 0.5 mg/2 ml Inhal Susp UD IH SCH ×2 (08:19→20:30)
[2018-02-24] MEDS: Albuterol-Ipratrop 3 mg / 0.5 (3 ml) UD IH SCH ×3 (08:19→20:30)
[2018-02-24 09:02] LABS: ALB/GLOB RATIO 1.1 (1.1-1.8); ALBUMIN 3.1 g/dL (3.0-4.8); ALT/SGPT 51 U/L (7-56); AST/SGOT 35 U/L (14-36); BLOOD UREA NITROGEN 13 mg/dL (7-21); CALCIUM 8.3 mg/dL (8.4-10.5); GFR AFRICAN-AMERICAN > 60; GFR NON-AFRICAN AMERICAN > 60
[2018-02-24] MEDS: Azithromycin 500MG/NS 250ml 500 MG/250 ML BAG IVPB SCH (09:29)
--- NOTE | 2018-02-24 10:28 | PN ---
SUBJECTIVE: The patient was seen and examined at bedside on the telemetry kimball. No acute events overnight. She remains afebrile, hemodynamically stable and with continued improvement in her respiratory status . This morning she feels significantly better since admission but is not yet at her baseline and otherwise offers no complaints. OBJECTIVE: VITAL SIGNS: Temperature 97.7, pulse 53, blood pressure 140/66, respiratory rate 19, oxygen saturation 94% on room air. GENERAL: No apparent distress. HEENT: PERRL. EOMI. No scleral icterus. No conjunctival pallor. NECK: No JVD. No bruits. LUNGS: Decreased breath sounds at the bases with minimal bilateral rhonchi and scattered wheeze. CARDIOVASCULAR: Regular rate and rhythm. Normal S1 and S2. No murmurs. ABDOMEN: Normoactive bowel sounds. Soft, nontender, nondistended. EXTREMITIES: No edema. NEUROLOGIC: Awake, alert and oriented x 3. No focal motor deficits. LABORATORY DATA: Morning labs are pending. Blood cultures pending. Sputum culture pending. ASSESSMENT: The patient is a 53 year old woman with a past medical history of hypothyroidism and COPD with active tobacco dependence who was admitted for management of multilobar community-acquired pneumonia. PLAN: 1. Community-acquired pneumonia, multilobar, improving. Input from Dr. Ryan and Dr. Mercado appreciated. Continue with supplemental oxygen, bronchodilators and steroids to taper. Continue with current antimicrobials pending culture reports. 2. Hypothyroidism. Continue Synthroid 125 mcg p.o. daily. 3. Tobacco dependence. The patient has been extensively counseled on the need for smoking cessation and at present declines nicotine patch. 4. Anxiety. Continue with Xanax 0.5 mg p.o. t.i.d. as needed for anxiety. 5. Prophylaxis. GI prophylaxis not indicated as patient is eating. DVT prophylaxis is not indicated as patient is ambulatory. CODE STATUS: Full code. Wojciech Thayer MD MTDD
[2018-02-24] MEDS: Vancomycin 1gm in NS 250ml 1 GM/250 ML BAG IVPB SCH ×2 (12:13→23:19)
--- NOTE | 2018-02-24 13:32 | CP.PCM.PN ---
Subjective - Date & Time of Evaluation Date of Evaluation: 02/24/18 Time of Evaluation: 10:30 - Subjective Subjective: Patient is breathing a little better, no fevers. Objective - Vital Signs/Intake and Output Vital Signs (last 24 hours): Temp Pulse Resp BP Pulse Ox 97.7 F 53 L 19 140/66 94 L 02/24/18 06:00 02/24/18 06:00 02/24/18 06:00 02/24/18 06:00 02/24/18 06:00 Intake and Output: 02/24/18 02/24/18 06:59 18:59 Intake Total 1050 Output Total 1 Balance 1049 - Medications Medications: Current Medications Albuterol/Ipratropium (Duoneb 3 Mg/0.5 Mg (3 Ml) Ud) 3 ml IH [id number] [facility] Last Admin: 02/24/18 08:19 Dose: 3 ml Albuterol/Ipratropium (Duoneb 3 Mg/0.5 Mg (3 Ml) Ud) 3 ml IH Q2H PRN PRN Reason: Shortness of Breath Alprazolam (Xanax) 0.5 mg PO TID PRN; Protocol PRN Reason: Anxiety Last Admin: 02/24/18 05:26 Dose: 0.5 mg Budesonide (Pulmicort Respules) 0.5 mg IH [id number] DESTINI Last Admin: 02/24/18 08:19 Dose: 0.5 mg Guaifenesin/Codeine Phosphate (Robitussin W/Codeine) 5 ml PO Q4H PRN PRN Reason: Cough and congestion Last Admin: 02/23/18 17:03 Dose: 5 ml Azithromycin (Zithromax 500mg In Ns) 500 mg in 250 mls @ 167 mls/hr IVPB DAILY [facility] Last Admin: 02/24/18 09:29 Dose: 167 mls/hr Cefepime HCl (Maxipime 1gm) 1 gm in 100 mls @ 100 mls/hr IVPB Q8 DESTINI PRN Reason: Protocol Last Admin: 02/24/18 05:22 Dose: 100 mls/hr Vancomycin HCl (Vancomycin 1gm) 1 gm in 250 mls @ 167 mls/hr IVPB Q12H DESTINI PRN Reason: Protocol Last Admin: 02/23/18 22:25 Dose: 167 mls/hr Levothyroxine Sodium (Synthroid) 125 mcg PO 0600 DESTINI Last Admin: 02/24/18 05:23 Dose: 125 mcg Lorazepam (Ativan) 0.5 mg IVP Q6H PRN; Protocol PRN Reason: Agitation Last Admin: 02/22/18 05:00 Dose: 0.5 mg Methylprednisolone (Solu-Medrol) 40 mg IVP Q8H DESTINI Last Admin: 02/24/18 07:07 Dose: Not Given Naproxen (Anaprox Ds) 550 mg PO BID PRN PRN Reason: Pain, moderate (4-7) Last Admin: 02/24/18 05:37 Dose: 550 mg - Labs Labs: 02/24/18 07:20 02/24/18 07:30 PT 11.8 SECONDS (9.4-12.5) 02/21/18 13:53 INR 1.03 (0.93-1.08) 02/21/18 13:53 - Constitutional Appears: Chronically Ill - Head Exam Head Exam: NORMAL INSPECTION - ENT Exam ENT Exam: Mucous Membranes Moist - Neck Exam Neck Exam: absent: Meningismus - Respiratory Exam Respiratory Exam: Decreased Breath Sounds - Cardiovascular Exam Cardiovascular Exam: +S1, +S2 - GI/Abdominal Exam GI & Abdominal Exam: Soft. absent: Tenderness Assessment and Plan - Assessment and Plan (Free Text) Plan: Assessment Sepsis due to multifocal HCAP (since she was exposed to antibiotics in the past week) COPD history of pneumonia hypothyroidism anxiety S/P oophorectomy S/P knee surgery Plan continue Vancomycin, Cefepime and Zithromax day 3 pending final blood cx results ; urine Legionella Ag is negative, sputum cx; PCT is low will continue to monitor clinically
[2018-02-25] MEDS: Albuterol-Ipratrop 3 mg / 0.5 (3 ml) UD IH SCH ×4 (02:05→20:00)
[2018-02-25] MEDS: guaiFENesin-Codeine 100-10mg/5ml Syrup (5 ml) UD PO PRN (02:36)
[2018-02-25] MEDS: Cefepime 1gm in NS 100ml 1 GM/100 ML BAG IVPB SCH ×3 (05:26→21:03)
[2018-02-25] MEDS: MethylPREDNISolone 40 mg Vial IVP SCH ×3 (05:27→22:02)
[2018-02-25] MEDS: Levothyroxine 125 MCG TAB PO SCH (05:27)
--- NOTE | 2018-02-25 07:05 | PN ---
DATE: 02/25/2018 PULMONARY NOTE SUBJECTIVE: The patient appears very comfortable this morning. She is not short of breath at rest. OBJECTIVE: VITAL SIGNS: Temperature 98.4, pulse 56, respirations 18, blood pressure 120/72. Oxygen saturation on nasal cannula is 94%. HEENT: Normocephalic, atraumatic. No JVD. CARDIOVASCULAR: Positive S1, S2. No S3 gallop. LUNGS: Improved breath sounds at the bases. Much less rhonchi. No wheezing this morning. EXTREMITIES: No clubbing, cyanosis or edema. Calves are nontender to palpation. GI: Abdomen is soft, nontender and nondistended. Bowel sounds are positive. SKIN: No acute rash. NEUROLOGIC: Exam limited at the present time. IMPRESSION: 1. Multilobar pneumonia. 2. Acute bronchitis. 3. Acute bronchospasm. 4. Chronic obstructive pulmonary disease. PLAN: The patient appears very comfortable this morning. She is not short of breath at rest. She does state to feeling much, much better overall. On physical exam, her bronchospasm continues to resolve. In addition, there is no significant alveolar-arterial gradient. I will continue with the current nebulizer treatments and inhaled steroids, as well as decrease the intravenous steroids this morning. I would continue with the current antibiotic therapy - as per Infectious Disease. Input by Dr. Mercado is noted. Temperatures have now fully resolved. Repeat morning labs are pending. Clinical status of the patient is significantly improved overall. I would like to see the patient out of bed more often. I will discuss the above with the attending physician. Yosef Ryan MD MT[facility]
[2018-02-25 07:08] LABS: HEMOGLOBIN 13.2 g/dL (12.0-16.0); MEAN CELL VOLUME 101.8 fl (80.0-105.0); MEAN CORPUSCULAR HEMOGLOBIN 33.8 pg (25.0-35.0); MEAN CORPUSCULAR HGB CONC 33.2 g/dl (31.0-37.0); MEAN PLATELET VOLUME 10.1 fl (7.0-11.0); RBC 3.9 10^6/uL (3.5-6.1); RED CELL DISTRIBUTION WIDTH 14.3 % (11.5-14.5)
[2018-02-25 07:39] LABS: ALB/GLOB RATIO 1.1 (1.1-1.8); ALBUMIN 3.2 g/dL (3.0-4.8); ALT/SGPT 61 U/L (7-56); AST/SGOT 35 U/L (14-36); BLOOD UREA NITROGEN 12 mg/dL (7-21); CALCIUM 8.4 mg/dL (8.4-10.5); GFR AFRICAN-AMERICAN > 60; GFR NON-AFRICAN AMERICAN > 60
[2018-02-25] MEDS: Budesonide 0.5 mg/2 ml Inhal Susp UD IH SCH ×2 (08:09→20:00)
[2018-02-25] MEDS ORDERED: Potassium Chloride 20 mEq ER Tab PO ONE (08:24)
[2018-02-25] MEDS: Azithromycin 500MG/NS 250ml 500 MG/250 ML BAG IVPB SCH (09:05)
[2018-02-25] MEDS: Vancomycin 1gm in NS 250ml 1 GM/250 ML BAG IVPB SCH (11:20)
--- NOTE | 2018-02-25 12:10 | CP.PCM.PN ---
Subjective - Date & Time of Evaluation Date of Evaluation: 02/25/18 Time of Evaluation: 09:35 - Subjective Subjective: Patient is feeling a little better, no fevers, not in distress but gets agitated with nebulizer treatments. Objective - Vital Signs/Intake and Output Vital Signs (last 24 hours): Temp Pulse Resp BP Pulse Ox 98.7 F 71 20 130/74 94 L 02/25/18 06:00 02/25/18 06:00 02/25/18 06:00 02/25/18 06:00 02/25/18 06:00 Intake and Output: 02/24/18 02/25/18 18:59 06:59 Intake Total 960 480 Output Total 2 Balance 958 480 - Medications Medications: Current Medications Albuterol/Ipratropium (Duoneb 3 Mg/0.5 Mg (3 Ml) Ud) 3 ml IH [id number] [facility] Last Admin: 02/25/18 02:05 Dose: 3 ml Albuterol/Ipratropium (Duoneb 3 Mg/0.5 Mg (3 Ml) Ud) 3 ml IH Q2H PRN PRN Reason: Shortness of Breath Alprazolam (Xanax) 0.5 mg PO TID PRN; Protocol PRN Reason: Anxiety Last Admin: 02/24/18 23:21 Dose: 0.5 mg Budesonide (Pulmicort Respules) 0.5 mg IH [id number] [facility] Last Admin: 02/24/18 20:30 Dose: 0.5 mg Guaifenesin/Codeine Phosphate (Robitussin W/Codeine) 5 ml PO Q4H PRN PRN Reason: Cough and congestion Last Admin: 02/25/18 02:36 Dose: 5 ml Azithromycin (Zithromax 500mg In Ns) 500 mg in 250 mls @ 167 mls/hr IVPB DAILY [facility] Last Admin: 02/24/18 09:29 Dose: 167 mls/hr Cefepime HCl (Maxipime 1gm) 1 gm in 100 mls @ 100 mls/hr IVPB Q8 DESTINI PRN Reason: Protocol Last Admin: 02/25/18 05:26 Dose: 100 mls/hr Vancomycin HCl (Vancomycin 1gm) 1 gm in 250 mls @ 167 mls/hr IVPB Q12H DESTINI PRN Reason: Protocol Last Admin: 02/24/18 23:19 Dose: 167 mls/hr Levothyroxine Sodium (Synthroid) 125 mcg PO 0600 DESTINI Last Admin: 02/25/18 05:27 Dose: 125 mcg Lorazepam (Ativan) 0.5 mg IVP Q6H PRN; Protocol PRN Reason: Agitation Last Admin: 02/24/18 18:07 Dose: 0.5 mg Methylprednisolone (Solu-Medrol) 40 mg IVP Q12 DESTINI Naproxen (Anaprox Ds) 550 mg PO BID PRN PRN Reason: Pain, moderate (4-7) Last Admin: 02/24/18 15:49 Dose: 550 mg - Labs Labs: 02/24/18 07:20 02/24/18 07:30 PT 11.8 SECONDS (9.4-12.5) 02/21/18 13:53 INR 1.03 (0.93-1.08) 02/21/18 13:53 - Constitutional Appears: Non-toxic, Chronically Ill - Head Exam Head Exam: NORMAL INSPECTION - Respiratory Exam Respiratory Exam: Decreased Breath Sounds - Cardiovascular Exam Cardiovascular Exam: +S1, +S2 - GI/Abdominal Exam GI & Abdominal Exam: Soft. absent: Tenderness Assessment and Plan - Assessment and Plan (Free Text) Plan: Assessment Sepsis due to multifocal HCAP (since she was exposed to antibiotics in the past week) COPD history of pneumonia hypothyroidism anxiety S/P oophorectomy S/P knee surgery Plan continue Vancomycin, Cefepime and Zithromax day 4; cultures have been negativeurine Legionella Ag is negative, sputum cx; PCT is low - aim to complete 4-7 days of antibiotics - if she continues to improve, may switch to PO antibiotics in the next 24-48 hours will continue to monitor clinically
--- NOTE | 2018-02-25 15:54 | PN ---
SUBJECTIVE: The patient was seen and examined at bedside on the telemetry kimball. No acute events overnight. She remains afebrile and hemodynamically stable. This morning she feels well and endorses continued improvement in her respiratory status. She does complain of mild agitation associated with her nebulizer treatments and also endorses insomnia but otherwise offers no complaints. PHYSICAL EXAMINATION VITAL SIGNS: Temperature 98.5, pulse 109, blood pressure 143/90, respiratory rate 20, oxygen saturation 94% on room air. GENERAL: No apparent distress. HEENT: PERRL. EOMI. No scleral icterus. No conjunctival pallor. NECK: No JVD. LUNGS: Decreased breath sounds at the bases with scattered wheeze. CARDIOVASCULAR: Regular rate and rhythm. Normal S1 and S2. ABDOMEN: Normoactive bowel sounds. Soft, nontender, nondistended. EXTREMITIES: No edema. NEUROLOGIC: Awake, alert and oriented x 3. No focal motor deficits. LABORATORY DATA: WBC 14, hemoglobin 13, hematocrit 39, platelets 275. Sodium 141, potassium 3.4, chloride 105, bicarbonate 27, BUN 12, creatinine 0.7 , glucose 98. Blood cultures with no growth to date. Sputum culture with no growth to date. ASSESSMENT: The patient is a 53 year old woman with a past medical history of hypothyroidism and COPD with active tobacco dependence who was admitted for management of multilobar pneumonia. PLAN: 1. Community-acquired pneumonia, multilobar, improving. Input from Dr. Ryan and Dr. Mercado appreciated. Continue with current antimicrobials which may be adjusted to p.o. regimen in the following 24-48 hours. Continue with supplemental oxygen, bronchodilators and steroids to taper. 2. Hypothyroidism. Continue Synthroid 125 mcg p.o. daily. 3. Tobacco dependence. The patient has been extensively counseled on the need for smoking cessation and continues to decline nicotine patch. 4. Anxiety. Continue Xanax 0.5 mg p.o. t.i.d. as needed. 5. Prophylaxis. GI prophylaxis is not indicated as the patient is eating. DVT prophylaxis is not indicated as the patient is ambulatory. CODE STATUS: Full code. Wojciech Thayer MD [facility] # [id number] MTDE[facility]
[2018-02-26] MEDS: Vancomycin 1gm in NS 250ml 1 GM/250 ML BAG IVPB SCH ×2 (00:10→11:32)
[2018-02-26] MEDS: guaiFENesin-Codeine 100-10mg/5ml Syrup (5 ml) UD PO PRN (01:11)
[2018-02-26] MEDS: Albuterol-Ipratrop 3 mg / 0.5 (3 ml) UD IH SCH ×3 (03:15→13:12)
[2018-02-26] MEDS: Cefepime 1gm in NS 100ml 1 GM/100 ML BAG IVPB SCH (05:56)
[2018-02-26] MEDS: Levothyroxine 125 MCG TAB PO SCH (06:48)
[2018-02-26 06:49] LABS: HEMOGLOBIN 13.7 g/dL (12.0-16.0); MEAN CELL VOLUME 101.3 fl (80.0-105.0); MEAN CORPUSCULAR HEMOGLOBIN 34.5 pg (25.0-35.0); MEAN CORPUSCULAR HGB CONC 34.1 g/dl (31.0-37.0); MEAN PLATELET VOLUME 10.1 fl (7.0-11.0); RBC 3.97 10^6/uL (3.5-6.1); RED CELL DISTRIBUTION WIDTH 13.9 % (11.5-14.5); WHITE BLOOD COUNT 12.3 10^3/ul (4.5-11.0)
[2018-02-26 07:28] LABS: ALB/GLOB RATIO 1.2 (1.1-1.8); ALBUMIN 3.3 g/dL (3.0-4.8); ALT/SGPT 106 U/L (7-56); AST/SGOT 55 U/L (14-36); BLOOD UREA NITROGEN 11 mg/dL (7-21); CALCIUM 8.4 mg/dL (8.4-10.5); GFR AFRICAN-AMERICAN > 60; GFR NON-AFRICAN AMERICAN > 60
[2018-02-26 07:46] VITALS: BP 119/75; PULSE 70; RESP 20; TEMP 98.3; O2SAT 96
[2018-02-26] MEDS: Budesonide 0.5 mg/2 ml Inhal Susp UD IH SCH (07:52)
[2018-02-26] MEDS ORDERED: MethylPREDNISolone 40 mg Vial IVP SCH (10:00)
--- NOTE | 2018-02-26 10:15 | PN ---
DATE: 02/26/2018 PULMONARY NOTE SUBJECTIVE: The patient appears very comfortable this morning. She is not short of breath at rest. PHYSICAL EXAMINATION: VITAL SIGNS: Temperature is 98.3, pulse is 70, respirations 18/20, blood pressure 119/75. Oxygen saturation on nasal cannula is 96%. HEENT: Normocephalic, atraumatic. No JVD. CARDIOVASCULAR: Positive S1, S2. No S3. LUNGS: Minimal/ much less rhonchi. No wheezing. EXTREMITIES: No clubbing, cyanosis or edema. Calves are nontender to palpation. GI: Abdomen is soft, nontender and nondistended. Bowel sounds are positive. SKIN: No acute rash. NEUROLOGIC: Limited at the present time. IMPRESSION: 1. Multilobar pneumonia. 2. Acute bronchitis. 3. Acute bronchospasm. 4. Chronic obstructive pulmonary disease. PLAN: The patient appears very comfortable this morning. She is not short of breath at rest. She does state to feeling much, much better overall. On physical exam, her bronchospasm continues to resolve. In addition, the alveolar arterial gradient also continues to resolve. I will continue with the current nebulizer treatments and decrease the intravenous steroids this morning. The patient remains on antibiotic therapy - as per Infectious Disease. The temperatures have fully resolved. The leukocytosis has almost completely resolved. The clinical status of the patient is significantly improved overall. The patient is strongly asking to be discharged. I will discuss the above with Dr. Thayer. Yosef Ryan MD MTDE[facility]
--- NOTE | 2018-02-26 11:57 | PN ---
SUBJECTIVE: The patient was seen and examined at bedside on the general medical kimball. No acute events overnight. She remains afebrile and hemodynamically stable. This morning she reports continued improvement in her breathing and states she is ambulating around her room with minimal respiratory distress and is requesting to be discharged to home. OBJECTIVE: VITAL SIGNS: Temperature 98.3, pulse 70, blood pressure 119/75, respiratory rate 20, oxygen saturation 96% on room air. GENERAL: No apparent distress. HEENT: PERRL. EOMI. No scleral icterus. No conjunctival pallor. NECK: No JVD. LUNGS: Decreased breath sounds at the bases with minimal wheeze. CARDIOVASCULAR: Regular rate and rhythm. Normal S1 and S2. No murmur. ABDOMEN: Normoactive bowel sounds. Soft, nontender, nondistended. EXTREMITIES: No edema. NEUROLOGICAL: Awake, alert and oriented x 3. No focal motor deficits. LABORATORY DATA: WBC 12, hemoglobin 13, hematocrit 40, platelets 277. Chemistry reviewed and unremarkable. Blood cultures with no growth to date. Sputum cultures with no growth to date. ASSESSMENT: The patient is a 53 year old woman with a past medical history of hypothyroidism and COPD with active tobacco dependence who was admitted for management of multilobar pneumonia. PLAN: 1. Community-acquired pneumonia, multilobar, resolving. Input from Dr. Ryan and Dr. Mercado appreciated. The patient has demonstrated significant improvement in her respiratory status since admission and reports being near her baseline. We will discharge her on an oral regimen of antibiotics and steroid taper. 2. Hypothyroidism. Continue Synthroid 125 mcg p.o. daily. 3. Tobacco dependence. The patient has been counseled on the need for smoking cessation. 4. Anxiety. Continue Xanax 0.5 mg p.o. t.i.d. as needed. 5. Prophylaxis. GI prophylaxis is not indicated as the patient is eating. DVT prophylaxis is not indicated as the patient is ambulatory. CODE STATUS: Full code. Wojciech Thayer MD [facility]
--- NOTE | 2018-02-26 13:08 | CP.PCM.PN ---
Subjective - Date & Time of Evaluation Date of Evaluation: 02/26/18 Time of Evaluation: 11:20 - Subjective Subjective: No fevers, not in distress, complaining of oral thrush but no pain on swallowing , breathing better. Objective - Vital Signs/Intake and Output Vital Signs (last 24 hours): Temp Pulse Resp BP Pulse Ox 98.3 F 70 20 119/75 96 02/26/18 06:00 02/26/18 06:00 02/26/18 06:00 02/26/18 06:00 02/26/18 06:00 Intake and Output: 02/26/18 02/26/18 06:59 18:59 Intake Total 860 Balance 860 - Medications Medications: Current Medications Albuterol/Ipratropium (Duoneb 3 Mg/0.5 Mg (3 Ml) Ud) 3 ml IH [id number] DESTINI Last Admin: 02/26/18 07:51 Dose: 3 ml Albuterol/Ipratropium (Duoneb 3 Mg/0.5 Mg (3 Ml) Ud) 3 ml IH Q2H PRN PRN Reason: Shortness of Breath Last Admin: 02/25/18 17:59 Dose: 3 ml Alprazolam (Xanax) 0.5 mg PO TID PRN; Protocol PRN Reason: Anxiety Last Admin: 02/26/18 04:08 Dose: 0.5 mg Azithromycin (Zithromax) 500 mg PO DAILY DESTINI Budesonide (Pulmicort Respules) 0.5 mg IH [id number] [facility] Last Admin: 02/26/18 07:52 Dose: 0.5 mg Guaifenesin/Codeine Phosphate (Robitussin W/Codeine) 5 ml PO Q4H PRN PRN Reason: Cough and congestion Last Admin: 02/26/18 01:11 Dose: 5 ml Cefepime HCl (Maxipime 1gm) 1 gm in 100 mls @ 100 mls/hr IVPB Q8 DESTINI PRN Reason: Protocol Last Admin: 02/26/18 05:56 Dose: 100 mls/hr Vancomycin HCl (Vancomycin 1gm) 1 gm in 250 mls @ 167 mls/hr IVPB Q12H DESTINI PRN Reason: Protocol Last Admin: 02/26/18 00:10 Dose: 167 mls/hr Levothyroxine Sodium (Synthroid) 125 mcg PO 0600 DESTINI Last Admin: 02/26/18 06:48 Dose: 125 mcg Lorazepam (Ativan) 0.5 mg IVP Q6H PRN; Protocol PRN Reason: Agitation Last Admin: 02/25/18 14:33 Dose: 0.5 mg Methylprednisolone (Solu-Medrol) 30 mg IVP Q12 DESTINI Naproxen (Anaprox Ds) 550 mg PO BID PRN PRN Reason: Pain, moderate (4-7) Last Admin: 02/24/18 15:49 Dose: 550 mg Zolpidem Tartrate (Ambien) 5 mg PO HS PRN; Protocol PRN Reason: Insomnia Last Admin: 02/25/18 21:03 Dose: 5 mg - Labs Labs: 02/26/18 06:20 02/26/18 06:20 PT 11.8 SECONDS (9.4-12.5) 02/21/18 13:53 INR 1.03 (0.93-1.08) 02/21/18 13:53 - Constitutional Appears: Chronically Ill - Head Exam Head Exam: NORMAL INSPECTION - ENT Exam Additional comments: oral thrush in posterior pharynx - Neck Exam Neck Exam: absent: Meningismus - Respiratory Exam Respiratory Exam: Decreased Breath Sounds - Cardiovascular Exam Cardiovascular Exam: +S1, +S2 - GI/Abdominal Exam GI & Abdominal Exam: Soft. absent: Tenderness Assessment and Plan - Assessment and Plan (Free Text) Plan: Assessment Sepsis due to multifocal HCAP (since she was exposed to antibiotics in the past week) oral candidiasis, acute COPD history of pneumonia hypothyroidism anxiety S/P oophorectomy S/P knee surgery Plan continue Vancomycin, Cefepime and will change Zithromax to PO Doxycycline day 5 ; cultures have been negative; urine Legionella Ag is negative, sputum cx; PCT is low - aim to complete 4-7 days of antibiotics - if she continues to improve, may switch to PO antibiotics in the next 24 hours will start PO Diflucan will continue to monitor clinically
--- NOTE | 2018-02-27 16:00 | DS ---
ADMITTING DIAGNOSIS: Multilobar community-acquired pneumonia. DISCHARGE DIAGNOSIS: Multilobar community-acquired pneumonia. SECONDARY DIAGNOSES: Hypothyroidism, COPD with active tobacco dependence and anxiety disorder. CONSULTATIONS: Dr. Ryan (Pulmonary and Critical Care Medicine) and Dr. Mercado (Infectious Disease). PROCEDURES: None. IMAGING STUDIES: 1. Chest x-ray demonstrated peribronchial thickening with no evidence of pneumonia. 2. CT of the chest with IV contrast demonstrated no evidence of PE but did demonstrate patchy ground-glass opacities in the upper lobes bilaterally and middle lobe consistent with pneumonia. HISTORY OF PRESENT ILLNESS: The patient is a 53 year old woman with a past medical history of hypothyroidism and COPD with active tobacco dependence who presented for evaluation of a 5 day history of progressively worsening chest tightness, dyspnea and cough productive of greenish sputum. The patient was initially seen in her PMD's office 4 days prior to presentation to the ED with the aforementioned symptoms. She was placed on Levaquin, Prednisone and a cough suppressant. Over the following 36 hours she was noted to have worsening in her symptoms and as such presented to the ED for further evaluation. HOSPITAL COURSE: The patient was admitted to the telemetry [facility] and was evaluated by Dr. Ryan of Pulmonary and Critical Care Medicine. She was placed on bronchodilators, inhaled corticosteroids and supplemental oxygen. She was also evaluated by Dr. Mercado of Infectious Disease and was placed on Vancomycin, Cefepime and Azithromycin. Over the following 36-48 hours she was noted to have significant improvement in her respiratory status. Blood and sputum cultures obtained on admission resulted negative and her hospital course was largely unremarkable. By hospital day #5 she was ambulating around the medical [facility] with minimal cardiopulmonary symptoms and thus was cleared for discharge to home. CONDITION: Good, improved. DISPOSITION: Home. DISCHARGE MEDICATIONS: Synthroid 125 mcg p.o. daily DISCHARGE INSTRUCTIONS: The patient was advised that if she develops any recurrence of her symptoms or any fevers, chills, rigors, hemoptysis or difficulty breathing to present to her PMD or to the nearest ED immediately. FOLLOWUP: The patient is to follow up with her PMD within 1 week of discharge. 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
== END 2018-02-26 13:32 | disposition home or self-care (01) | DRG 194 ==
LOC: ED 13:11 → ERH 19:06 → 2RSO 22:17 → 5RNO 02-25 16:42
PROVIDERS: ADMIT Student in an Organized Health Care Education/Training Program; ATTEND Student in an Organized Health Care Education/Training Program
PROC: 3E0F7GC Introduction of Other Therapeutic Substance into Respiratory Tract, Via Natural or Artificial Opening (ICD-10-PCS; principal; 2018-02-22)
DX: J18.9 Pneumonia, unspecified organism (principal); J44.1 Chronic obstructive pulmonary disease with (acute) exacerbation; J44.0 Chronic obstructive pulmonary disease with (acute) lower respiratory infection; F17.210 Nicotine dependence, cigarettes, uncomplicated; J20.9 Acute bronchitis, unspecified; R09.02 Hypoxemia; E03.9 Hypothyroidism, unspecified; F41.9 Anxiety disorder, unspecified; G47.00 Insomnia, unspecified; Y95 Nosocomial condition; Z87.01 Personal history of pneumonia (recurrent)